=== PATIENT | male | born 1980 | race Two or more races ===

== ENCOUNTER 2022-01-23 05:03 | Emergency (ER) | payer SELFPAY ==
[~2022-01-23] VITALS: Ht 165.1 cm; Wt 90.7 kg
[2022-01-23 07:21] VITALS: BP 144/88
[2022-01-23] MEDS ORDERED: TETANUS-DIPTH-ACEL PERTUSSIS 0.5ML SYR Tdap IM ONE (08:00)
[2022-01-23] MEDS ORDERED: IBUP800T27 PO (09:05)
[2022-01-23] MEDS ORDERED: CEPH-509 PO (09:05)
== END 2022-01-23 10:06 | disposition home or self-care (01) ==
LOC: ER 05:11
DX: S01.01XA Laceration without foreign body of scalp, initial encounter (principal); Y04.8XXA Assault by other bodily force, initial encounter; Y93.89 Activity, other specified; Y92.89 Other specified places as the place of occurrence of the external cause; Y99.8 Other external cause status
CPT/HCPCS: 12001; 70450; 70486; 90471; 90715

== ENCOUNTER 2022-01-25 09:50 | Emergency (ER) | payer MEDICAID, OTHER ==
[~2022-01-25] VITALS: Ht 165.1 cm; Wt 90.7 kg
[~2022-01-25 09:50] MED LIST: CEPH-509 PO; IBUP800T27 PO
[2022-01-25 10:03] VITALS: BP 126/83
== END 2022-01-25 14:43 | disposition home or self-care (01) ==
LOC: ER 09:50
DX: S01.01XD Laceration without foreign body of scalp, subsequent encounter (principal); Y09 Assault by unspecified means

== ENCOUNTER 2022-01-30 08:29 | Emergency (ER) | payer MEDICAID ==
[~2022-01-30] VITALS: Ht 165.1 cm; Wt 90.7 kg
[2022-01-30 09:45] VITALS: BP 120/68
== END 2022-01-30 09:51 | disposition home or self-care (01) ==
LOC: ER 08:29
DX: S01.01XD Laceration without foreign body of scalp, subsequent encounter (principal); Y09 Assault by unspecified means